=== PATIENT | male | born 1960 | race Two or more races ===

== ENCOUNTER 2023-04-10 08:28 | Emergency (ER) | payer OTHER ==
[~2023-04-10] VITALS: Ht 170.2 cm; Wt 78.6 kg
[2023-04-10 08:43] VITALS: BP 183/87; PULSE 92; RESP 16; O2SAT 99
== END 2023-04-10 10:06 | disposition left against medical advice (07) ==
LOC: ER 08:28
DX: H57.89 Other specified disorders of eye and adnexa (principal); Z53.21 Procedure and treatment not carried out due to patient leaving prior to being seen by health care provider